=== PATIENT | male | born 1965 | race Two or more races ===

== ENCOUNTER 2021-05-12 21:41 | Inpatient (IN) | payer MEDICAID ==
[~2021-05-12] VITALS: Ht 182.9 cm; Wt 96.0 kg
[2021-05-12] MEDS ORDERED: SODIUM CHLORIDE 0.9% 1,000 ML IV ONE ×2 (22:15)
[2021-05-12 22:25] LABS: BG BASE EXCESS 1.4 mmol/L (-2.0-2.0); BG CARBOXYHEMOGLOBIN 1.5 % (0.5-1.5); BG DEOXYHEMOGLOBIN 4.9 % (0.0-5.0); BG HCO3 ACT 26.4 mmol/L (22.0-26.0); BG METHEMOGLOBIN 0.3 % (0.0-1.5); BG OXYHEMOGLOBIN 93.3 % (94.0-97.0); BG PCO2 43.2 mmHg (35.0-45.0); BG PH 7.404 (7.350-7.450); BG PO2 75.5 mmHg (75.0-100.0); BG SAMPLE SITE RIGHT RADIAL; BG TOTAL HEMOGLOBIN 14.6 g/dL (12.0-18.0); BG VENT MODE ROOM AIR
[2021-05-12 23:49] LABS: BASOPHILS % 0.5 % (0.0-2.0); EOSINOPHILS % 14.9 % (0.0-5.0); HEMATOCRIT. 39.2 % (42.0-52.0); HEMOGLOBIN. 13.4 g/dL (14.0-18.0); LYMPHOCYTES % 15.4 % (20.0-50.0); MEAN CORPUSCULAR HEMOGLOBIN 31.4 pg (28.0-32.0); MEAN CORPUSCULAR VOLUME 92.2 fL (80.0-94.0); MEAN PLATELET VOLUME 7.5 fl (7.4-10.4); MONOCYTES % 6.4 % (2.0-8.0); NEUTROPHILS % 62.8 % (40.0-76.0); PLATELET 240 x1000/uL (130-400); RED BLOOD CELL COUNT 4.25 mill/uL (4.7-6.1)
[2021-05-12 23:54] LABS: CHLORIDE 105 mEq/L (98-107); PARTIAL THROMBOPLASTIN TIME 24.9 sec (23.4-31.0); PROTHROMBIN TIME 10.3 sec (9.6-11.0)
[2021-05-13 00:02] LABS: BETA HYDROXYBUTYRATE 0.1 mMol/L (0.0-0.3)
[2021-05-13] MEDS ORDERED: LACTULOSE 20G/30ML UDC PO ONE (00:15)
[2021-05-13] MEDS ORDERED: AZITHROMYCIN 500MG/250ML 250 ML IV ONE (00:30)
[2021-05-13] MEDS ORDERED: CEFTRIAXONE 1 G PREMIX 50 ML IV ONE (00:30)
[2021-05-13] MEDS ORDERED: SODIUM CHLORIDE 0.9% 1000ML BAG (SEPSIS BOLUS) IV ONE (00:30)
[2021-05-13 03:55] LABS: CLARITY URINE CLEAR (CLEAR); COLOR URINE YELLOW (YELLOW); KETONES URINE NEGATIVE (NEGATIVE); LEUKOCYTE ESTERASE URINE NEGATIVE (NEGATIVE); NITRITE URINE NEGATIVE (NEGATIVE); OCCULT BLOOD URINE NEGATIVE (NEGATIVE); PROTEIN URINE 2+ (NEGATIVE); SPECIFIC GRAVITY URINE 1.021 (1.005-1.030)
[2021-05-13 05:05] LABS: *AMPHETAMINES SCREEN URINE NEGATIVE (NEGATIVE); *BARBITURATES SCREEN URINE NEGATIVE (NEGATIVE); *BENZODIAZEPINES SCREEN URINE NEGATIVE (NEGATIVE); *COCAINE SCREEN URINE NEGATIVE (NEGATIVE)
[2021-05-13 05:06] LABS: CANNABINOID URINE SCREEN PRESUMTIVE POSITIVE (NEGATIVE); METHADONE URINE SCREEN NEGATIVE (NEGATIVE); OPIATES URINE SCREEN NEGATIVE (NEGATIVE)
[2021-05-13 05:07] LABS: PHENCYCLIDINE URINE SCREEN NEGATIVE (NEGATIVE)
[2021-05-13] MEDS ORDERED: DEXTROSE 50% WATER 50ML SYRINGE IV PRN (09:00)
[2021-05-13] MEDS ORDERED: ACETAMINOPHEN 325MG TABLET PO PRN (09:00)
[2021-05-13] MEDS ORDERED: ONDANSETRON HCL 4MG/2ML INJ IV PRN (09:00)
[2021-05-13] MEDS: INSULIN LISPRO 100 UNITS/ML SUBCUT SCH ×2 (09:22→13:06)
[2021-05-13] MEDS ORDERED: BLOOD SUGAR DIAGNOSTIC STRIP TEST SCH (11:30)
[2021-05-13 13:00] VITALS: BP 168/85
== END 2021-05-13 13:20 | disposition home or self-care (01) | DRG 52 ==
LOC: ER 21:41 → MICUSO 05-13 02:52 → 8WST 05-13 12:28 → MICUSO 05-13 12:48
PROVIDERS: ADMIT Internal Medicine; ATTEND Internal Medicine
DX: G93.41 Metabolic encephalopathy (principal); E44.1 Mild protein-calorie malnutrition; E11.65 Type 2 diabetes mellitus with hyperglycemia; F12.90 Cannabis use, unspecified, uncomplicated; Z20.822 Contact with and (suspected) exposure to COVID-19; Z79.84 Long term (current) use of oral hypoglycemic drugs; Z68.28 Body mass index [BMI] 28.0-28.9, adult
CPT/HCPCS: 36415; 36600; 71045; 80053; 80305; 80320; 81003; 82010; 82140; 82375; 82805; 82962; 83036; 83605; 83880; 84484; 85025; 87426; 93005; 99285; J0456; J0696; J1815; J7030; U0003; U0005; G0480

== ENCOUNTER 2025-08-02 01:06 | Inpatient (IN) | payer SELFPAY ==
[~2025-08-02] VITALS: Ht 175.3 cm; Wt 99.4 kg
[2025-08-02] VITALS (7 sets, daily range): BP systolic 138–178; BP diastolic 8–92; PULSE 75–88; RESP 13–20; TEMP 36.3–36.8; O2SAT 95–100
[~2025-08-02 01:06] MED LIST: AMLO10TA80 PO; ASPI-1406 PO; ATOR40TA70 MT; COR12 PO; INSU100I28 SQ; LEVO750T68 MT
[2025-08-02 02:09] LABS: BASOPHILS % 0.4 % (0.0-2.0); EOSINOPHILS % 6.8 % (0.0-5.0); HEMATOCRIT. 29.1 % (42.0-52.0); HEMOGLOBIN. 9.6 g/dL (14.0-18.0); LYMPHOCYTES % 9.1 % (20.0-50.0); MEAN PLATELET VOLUME 7.0 fl (7.4-10.4); MONOCYTES % 4.1 % (2.0-8.0); NEUTROPHILS % 79.6 % (40.0-76.0); PLATELET 250 x1000/uL (130-400); RED BLOOD CELL COUNT 3.15 mill/uL (4.7-6.1); RED CELL DISTRIBUTION WIDTH 15.2 % (11.6-14.6)
[2025-08-02] MEDS: ACETAMINOPHEN 325MG TABLET PO ONE (02:28)
[2025-08-02] MEDS: ALBUTEROL (0.083%) 2.5MG/3ML NEB HHN ONE (02:49)
[2025-08-02 03:15] LABS: ETHANOL BLOOD < 10 mg/dL (<10); PROTEIN TOTAL 6.4 g/dL (6.0-8.3); TROPONIN I HIGH SENSITIVITY 34 ng/L (3.0-53); UREA NITROGEN BLOOD 60 mg/dL (9-23)
[2025-08-02 03:16] LABS: ASPARTATE AMINOTRANSFERASE 142 IU/L (<34)
[2025-08-02 03:17] LABS: BILIRUBIN DIRECT < 0.1 mg/dL (<=3.0); BILIRUBIN TOTAL 0.2 mg/dL (0.1-1.0)
[2025-08-02 04:06] LABS: CREATININE 4.7 mg/dL (0.6-1.3)
[2025-08-02] MEDS: MORPHINE SULFATE 4 MG/ML INJ (FOR IV/IM USE) IV ONE (04:39)
[2025-08-02] MEDS ORDERED: CLONIDINE 0.1MG TABLET PO PRN ×2 (08:15→08:30)
[2025-08-02] MEDS ORDERED: ENOXAPARIN 40MG/0.4ML SYR SUBCUT SCH (08:15)
[2025-08-02] MEDS ORDERED: DOCUSATE SODIUM 100MG CAPSULE PO PRN ×2 (08:15→08:30)
[2025-08-02] MEDS ORDERED: ONDANSETRON HCL 4MG/2ML INJ IV PRN ×2 (08:15→08:30)
[2025-08-02] MEDS ORDERED: ACETAMINOPHEN 325MG TABLET PO PRN (08:15)
[2025-08-02] MEDS ORDERED: MAGNESIUM/ALUMINUM HYDROXIDE/SIMETHICONE 30ML UDC PO PRN (08:30)
[2025-08-02] MEDS ORDERED: DIPHENHYDRAMINE 50MG/ML VIAL IV PRN (08:30)
[2025-08-02] MEDS ORDERED: GUAIFENESIN 200MG/10ML SUGAR FREE UDC PO PRN (08:30)
[2025-08-02] MEDS ORDERED: IPRATROPIUM/ALBUTEROL 0.5-3(2.5)MG/3ML NEB NEB PRN (08:30)
[2025-08-02] MEDS ORDERED: SODIUM CHLORIDE 0.9% 1,000 ML IV SCH (08:30)
[2025-08-02] MEDS ORDERED: NA PHOS,M-B/NA PHOS,DI-BA ENEMA 118ML PR PRN (08:30)
[2025-08-02] MEDS ORDERED: NALOXONE HCL 0.4MG/ML VIAL IV PRN (09:00)
[2025-08-02] MEDS: AMLODIPINE 10MG TABLET PO SCH (09:36)
[2025-08-02] MEDS: ASPIRIN 81MG EC TABLET PO SCH (09:36)
[2025-08-02] MEDS: CARVEDILOL 12.5MG TABLET PO SCH (09:37)
[2025-08-02] MEDS: HYDROCODONE/ACETAMINOPHEN 5/325MG TABLET PO PRN (09:40)
[2025-08-02] MEDS: SODIUM CHLORIDE 0.45% 1,000 ML IV SCH (11:05)
[2025-08-02 14:59] LABS: CLARITY URINE CLEAR (CLEAR); COLOR URINE YELLOW (YELLOW); GLUCOSE URINE TRACE (NEGATIVE); KETONES URINE NEGATIVE (NEGATIVE); LEUKOCYTE ESTERASE URINE NEGATIVE (NEGATIVE); NITRITE URINE NEGATIVE (NEGATIVE); OCCULT BLOOD URINE 1+ (NEGATIVE); PH URINE 6.0 (4.5-8.0); PROTEIN URINE 4+ (NEGATIVE); SPECIFIC GRAVITY URINE 1.017 (1.005-1.030); UROBILINOGEN URINE 0.2 E.U./dL (0.2-1.0)
[2025-08-02 15:11] LABS: *AMPHETAMINES SCREEN URINE NEGATIVE (NEGATIVE); *BARBITURATES SCREEN URINE NEGATIVE (NEGATIVE); *BENZODIAZEPINES SCREEN URINE NEGATIVE (NEGATIVE)
[2025-08-02 15:12] LABS: *COCAINE SCREEN URINE NEGATIVE (NEGATIVE); CANNABINOID URINE SCREEN NEGATIVE (NEGATIVE); ECSTASY MDMA SCREEN URINE NEGATIVE (NEGATIVE); METHADONE URINE SCREEN NEGATIVE (NEGATIVE); OPIATES URINE SCREEN PRESUMPTIVE POSITIVE (NEGATIVE); PHENCYCLIDINE URINE SCREEN NEGATIVE (NEGATIVE)
[2025-08-02 15:16] LABS: BACTERIA URINE NONE SEEN; RBC URINE 0-2 /hpf (0-2); SQUAMOUS EPITHELIAL CELL URINE 1+ /lpf (RARE/1+); WBC URINE 0-2 /hpf (0-2); YEAST URINE NONE SEEN
[2025-08-02 17:07] LABS: TROPONIN I HIGH SENSITIVITY 32 ng/L (3.0-53)
[2025-08-02] MEDS: ATORVASTATIN CALCIUM 40MG TABLET PO SCH (20:59)
[2025-08-02] MEDS ORDERED: MEDICATION NOT ON FORMULARY EA (Insulin Glargine,Hum.rec.anlog (Lantus Solostar) 25 UNIT SQ SCH (21:00)
[2025-08-02] MEDS: INSULIN GLARGINE 100 UNITS/ML SUBCUT SCH (21:10)
[2025-08-03] VITALS: BP 135/74; PULSE 78; RESP 18; TEMP 36.6; O2SAT 100
[2025-08-03 00:08] LABS: TROPONIN I HIGH SENSITIVITY 28 ng/L (3.0-53)
[2025-08-03 04:00] VITALS: BP 135/74; PULSE 78; RESP 18; TEMP 36.6; O2SAT 95
[2025-08-03 08:00] VITALS: BP 166/78; PULSE 84; RESP 16; TEMP 36.8; O2SAT 99
[2025-08-03 09:59] LABS: BASOPHILS % 0.9 % (0.0-2.0); EOSINOPHILS % 4.7 % (0.0-5.0); HEMATOCRIT. 30.9 % (42.0-52.0); HEMOGLOBIN. 10.4 g/dL (14.0-18.0); LYMPHOCYTES % 7.7 % (20.0-50.0); MEAN PLATELET VOLUME 7.3 fl (7.4-10.4); MONOCYTES % 8.2 % (2.0-8.0); NEUTROPHILS % 78.5 % (40.0-76.0); PLATELET 243 x1000/uL (130-400); RED BLOOD CELL COUNT 3.28 mill/uL (4.7-6.1); RED CELL DISTRIBUTION WIDTH 14.9 % (11.6-14.6)
[2025-08-03 10:47] LABS: CREATININE 4.8 mg/dL (0.6-1.3); UREA NITROGEN BLOOD 51.0 mg/dL (9-23)
[2025-08-03 12:00] VITALS: BP 153/84; PULSE 80; RESP 20; TEMP 36.9; O2SAT 98
[2025-08-03] MEDS: HYDRALAZINE HCL 50MG TABLET PO SCH (14:44)
[2025-08-03 16:00] VITALS: BP 130/76; PULSE 85; RESP 19; TEMP 36.9; O2SAT 98
[2025-08-03 17:11] LABS: HEMATOCRIT. 28.8 % (42.0-52.0); HEMOGLOBIN. 9.6 g/dL (14.0-18.0); MEAN PLATELET VOLUME 7.7 fl (7.4-10.4); PLATELET 242 x1000/uL (130-400); RED BLOOD CELL COUNT 3.10 mill/uL (4.7-6.1); RED CELL DISTRIBUTION WIDTH 14.6 % (11.6-14.6)
[2025-08-03 17:31] LABS: CREATININE 4.9 mg/dL (0.6-1.3); TRIGLYCERIDE 133.0 mg/dL (0-150); UREA NITROGEN BLOOD 59.0 mg/dL (9-23)
[2025-08-03 17:32] LABS: CREATINE KINASE MB FRACTION 3.4 ng/mL (0.5-3.6); LDL CHOLESTEROL 173.0 mg/dL (5-100); TROPONIN I HIGH SENSITIVITY 26 ng/L (3.0-53)
[2025-08-03 17:43] LABS: EOSINOPHILS % MANUAL 2.0 % (0.0-5.0); LYMPHOCYTES % MANUAL 9.0 % (20.0-50.0); MONOCYTES % MANUAL 4.0 % (2.0-8.0); NEUTROPHILS % MANUAL 85.0 % (45.0-75.0); PLATELET ESTIMATE NORMAL
[2025-08-03 20:00] VITALS: BP 149/72; PULSE 89; RESP 18; TEMP 36.8; O2SAT 97
[2025-08-03] MEDS: FAMOTIDINE 20MG TABLET PO SCH (21:21)
[2025-08-03 22:04] LABS: *AMPHETAMINES SCREEN URINE NEGATIVE (NEGATIVE); *BARBITURATES SCREEN URINE NEGATIVE (NEGATIVE); *BENZODIAZEPINES SCREEN URINE NEGATIVE (NEGATIVE); *COCAINE SCREEN URINE NEGATIVE (NEGATIVE); CANNABINOID URINE SCREEN NEGATIVE (NEGATIVE); CLARITY URINE CLEAR (CLEAR); COLOR URINE YELLOW (YELLOW); CREATININE URINE RANDOM 92.0 mg/dL; ECSTASY MDMA SCREEN URINE NEGATIVE (NEGATIVE); GLUCOSE URINE TRACE (NEGATIVE); KETONES URINE NEGATIVE (NEGATIVE); LEUKOCYTE ESTERASE URINE NEGATIVE (NEGATIVE); METHADONE URINE SCREEN NEGATIVE (NEGATIVE); NITRITE URINE NEGATIVE (NEGATIVE); OCCULT BLOOD URINE 1+ (NEGATIVE); OPIATES URINE SCREEN PRESUMPTIVE POSITIVE (NEGATIVE); PH URINE 5.5 (4.5-8.0); PHENCYCLIDINE URINE SCREEN NEGATIVE (NEGATIVE); PROTEIN URINE 3+ (NEGATIVE); SPECIFIC GRAVITY URINE 1.018 (1.005-1.030); UROBILINOGEN URINE 1.0 E.U./dL (0.2-1.0)
[2025-08-03 22:22] LABS: RBC URINE 0-2 /hpf (0-2); WBC URINE 0-2 /hpf (0-2)
[2025-08-03 22:23] LABS: BACTERIA URINE TRACE; SQUAMOUS EPITHELIAL CELL URINE FEW /lpf (RARE/1+)
[2025-08-03 22:39] LABS: PROTEIN URINE RANDOM 596.0 mg/dL
[2025-08-04] VITALS (8 sets, daily range): BP systolic 115–155; BP diastolic 56–76; PULSE 75–87; RESP 11–20; TEMP 36.6–38.2; O2SAT 96–100
[2025-08-04] MEDS: DEXTROSE 50% WATER 50ML SYRINGE IV PRN (06:45)
[2025-08-04] MEDS: BLOOD SUGAR DIAGNOSTIC STRIP TEST SCH (06:50)
[2025-08-04] MEDS: INSULIN LISPRO 100 UNITS/ML SUBCUT SCH ×2 (06:50→12:20)
[2025-08-04 07:21] LABS: UREA NITROGEN BLOOD 64.0 mg/dL (9-23)
[2025-08-04 07:37] LABS: HEMATOCRIT. 27.1 % (42.0-52.0); HEMOGLOBIN. 9.1 g/dL (14.0-18.0); MEAN PLATELET VOLUME 7.4 fl (7.4-10.4); PLATELET 210 x1000/uL (130-400); RED BLOOD CELL COUNT 2.94 mill/uL (4.7-6.1); RED CELL DISTRIBUTION WIDTH 14.4 % (11.6-14.6)
[2025-08-04 07:55] LABS: CREATININE 5.2 mg/dL (0.6-1.3)
[2025-08-04] MEDS: ACETAMINOPHEN 325MG TABLET PO PRN (14:00)
[2025-08-04 20:30] LABS: EOSINOPHILS % MANUAL 1.0 % (0.0-5.0); LYMPHOCYTES % MANUAL 7.0 % (20.0-50.0); MONOCYTES % MANUAL 10.0 % (2.0-8.0); NEUTROPHILS % MANUAL 82.0 % (45.0-75.0); PLATELET ESTIMATE NORMAL
[2025-08-04] MEDS: ATORVASTATIN CALCIUM 40MG TABLET PO SCH (21:00)
[2025-08-05] VITALS: BP 127/63; PULSE 75; RESP 15; TEMP 36.4; O2SAT 98
[2025-08-05] MEDS: HYDRALAZINE HCL 100MG TABLET PO SCH (01:59)
[2025-08-05 04:00] VITALS: BP 116/72; PULSE 76; RESP 20; O2SAT 98
[2025-08-05 08:00] VITALS: BP 102/52; PULSE 77; RESP 16; TEMP 37.1; O2SAT 97
[2025-08-05] MEDS ORDERED: ASPI-1406 PO (08:15)
[2025-08-05] MEDS ORDERED: CITR473S PO (08:15)
[2025-08-05] MEDS ORDERED: LIP40 PO (08:15)
[2025-08-05] MEDS ORDERED: HYDR100T31 PO (08:15)
[2025-08-05] MEDS ORDERED: COR12 PO (08:15)
[2025-08-05] MEDS ORDERED: AMLO10TA80 PO (08:15)
[2025-08-05] MEDS: CITRIC ACID/SODIUM CITRATE SOLN 30ML UDC PO SCH (08:36)
[2025-08-05 12:00] VITALS: BP_SYST 105; BP_SYST 118; BP_DIAS 56; BP_DIAS 59; PULSE 75; PULSE 81; RESP 16; RESP 22; TEMP 36.7; O2SAT 96
== END 2025-08-05 12:30 | disposition home or self-care (01) | DRG 469 ==
LOC: ER 01:10 → 3WST 04:37 → EDBEDREQTM 04:49 → EDBEDREQ 04:49 → 3WST 21:58
PROVIDERS: ADMIT Internal Medicine; ATTEND Internal Medicine
DX: N17.9 Acute kidney failure, unspecified (principal); E87.20 Acidosis, unspecified; S06.0XAA Concussion with loss of consciousness status unknown, initial encounter; D63.1 Anemia in chronic kidney disease; I16.0 Hypertensive urgency; E11.22 Type 2 diabetes mellitus with diabetic chronic kidney disease; I12.9 Hypertensive chronic kidney disease with stage 1 through stage 4 chronic kidney disease, or unspecified chronic kidney disease; N18.9 Chronic kidney disease, unspecified; E86.0 Dehydration; E78.5 Hyperlipidemia, unspecified; R07.89 Other chest pain; Z79.899 Other long term (current) drug therapy; Z79.82 Long term (current) use of aspirin; Z79.4 Long term (current) use of insulin; V89.2XXA Person injured in unspecified motor-vehicle accident, traffic, initial encounter; Y93.89 Activity, other specified; Y92.410 Unspecified street and highway as the place of occurrence of the external cause; Y99.8 Other external cause status
CPT/HCPCS: 36415; 70486; 71045; 76770; 80048; 80061; 80076; 80305; 80320; 81003; 82550; 82553; 82570; 82962; 83036; 83880; 84156; 84484; 85025; 93005; 93970; 94070; 94640; 97162; 97166; 98960; 99285; A4606; J1815; J2270; G0480